=== PATIENT | male | born 1980 | race Hispanic/Latino ===

== ENCOUNTER 2016-08-15 08:20 | Emergency (ER) | payer OTHER ==
[~2016-08-15] VITALS: Ht 182.9 cm; Wt 86.6 kg
--- NOTE | 2016-08-15 09:27 | ED GENERAL ADULT ---
History of Present Illness General Chief Complaint: General Adult Stated Complaint: LEFT RIB PAIN Source: patient Exam Limitations: no limitations Vital Signs & Intake/Output Vital Signs & Intake/Output Vital Signs Date Time Temp Pulse Resp B/P B/P Pulse O2 O2 Flow FiO2 Mean Ox Delivery Rate 08/15 0825 98.4 94 20 155/81 99 Room Air Allergies Coded Allergies: No Known Allergies (08/15/16) Reconcile Medications No Known Home Medications Triage Note: 35 YO MALE TO TRIAGE C/O L SIDED RIB PAIN X 4 DAYS. STATES ABOUT A WEEK AGO HE LAYED DOWN ON A WASHOE BAR ON THE L SIDE. PT STATES ITS HARD TO TAKE A DEEP BREATH D/T THE PAIN. NO RESP DISTRESS NOTED. RA SATS 99% AT THIS TIME. Triage Nurses Notes Reviewed? yes HPI: Patient presents for evaluation of severe sharp left rib pain that began about 5 days ago. Patient states that he becomes worse with deep breath coughing and movement. He denies any specific trauma but states that about one week ago he was digging a hole while he was working he was lying on a crowbar for a while. He states he didn't have much pain initially and so didn't think much of it. Since then however he has had an intermittent pain as described above with no associated soft tissue swelling and ecchymoses or rashes. He has tried lidocaine patches and other "back pain patches" [id number] without improvement. He tried ibuprofen 600 mg 4 a day without improvement. Nothing seems to make his pain feel better. Past History Travel History Traveled to [place] past 21 day No Medical History Any Pertinent Medical History? see below for history Neurological: NONE EENT: NONE Cardiovascular: NONE Respiratory: NONE Gastrointestinal: NONE Hepatic: NONE Renal: NONE Musculoskeletal: NONE Psychiatric: NONE Endocrine: NONE Blood Disorders: NONE Cancer(s): NONE JANITORIAL TECH/Reproductive: NONE Surgical History Surgical History: non-contributory Psychosocial History What is your primary language Chilean Tobacco Use: Never used Family History Hx Contributory? No Review of Systems Review of Systems Constitutional: Reports: no symptoms. EENTM: Reports: no symptoms. Respiratory: Reports: no symptoms. Cardiovascular: Reports: no symptoms. GI: Reports: no symptoms. Genitourinary: Reports: no symptoms. Musculoskeletal: Reports: see HPI. Skin: Reports: no symptoms. Neurological/Psychological: Reports: no symptoms. Hematologic/Endocrine: Reports: no symptoms. Immunologic/Allergic: Reports: no symptoms. All Other Systems: Reviewed and Negative Physical Exam Physical Exam General Appearance: SEE BELOW Comments: Gen.: Well-nourished, well-developed, no acute respiratory distress. Head: Normocephalic, atraumatic. Eyes: Normal inspection bilaterally Ears: Normal inspection bilaterally Nose: Normal inspection Throat/mouth : Moist mucosa Neck: Supple, full range of motion, no goiter Heart: Regular rate and rhythm, no murmurs rubs or gallops Lungs: Clear to auscultation bilaterally with normal air entry Chest: Left anterior inferior rib tenderness without soft tissue swelling or ecchymoses or rashes Back: Normal range of motion Abdomen: Soft, nontender, nondistended, normal bowel sounds Extremities: Normal range of motion grossly, equal radial pulses, no cyanosis clubbing or edema Neurologic: Cranial nerves grossly intact, speech is clear Skin: warm and dry Psychiatric: Calm, cooperative, no apparent delusions or hallucinations Core Measures ACS in differential dx? No CVA/TIA Diagnosis: No Severe Sepsis Present: No Septic Shock Present: No Diagram Chest, Abdomen, Back: 1) AREA OF TENDERNESS Progress Differential Diagnoses I considered the following diagnoses in my evaluation of the patient: Rib fracture, rib contusion, intercostal muscle pull Plan of Care: Orders Procedure Date/time Status XRY-CHEST XRAY, PA AND LATERAL 08/15 924 Active Initial ED EKG: none Departure Departure Disposition: HOME OR SELF CARE Condition: Stable Clinical Impression Primary Impression: Intercostal muscle strain Qualifiers: Encounter type: initial encounter Qualified Code: S29.011A - Strain of muscle and tendon of front wall of thorax, initial encounter Referrals: LATRLEL HALE MD (PCP/Family) Additional Instructions: Rest, no exertional heavy lifting. Diclofenac and Flexeril as prescribed. Follow up with your primary care physician in 5 days if not improving. Return if any concerns or sudden worsening. Please note that there might be incidental findings in your evaluation that are unrelated to the current emergency department visit. Please notify your primary care doctor about this emergency department visit in order to obtain and review all of the testing performed so that these incidental findings can be monitored as needed. If you had an x-ray performed, please understand that some fractures may not be seen on the initial set of x-rays. If your symptoms persist you might need a repeat set of x-rays to check for such a fracture. If you had a laceration evaluated, please understand that foreign bodies such as glass or wood may not be visible to the naked eye or on plain x-rays. If the wound becomes red, swollen, increasingly more painful or if there is any drainage from the wound, please have it reevaluated by a physician for the possibility of a retained foreign body. Thank you for choosing the [facility] for your care. It was a pleasure to serve you today. Mahamed Onofre M.D. [facility] Departure Forms: Customer Survey General Discharge Information Prescriptions: Current Visit Scripts Diclofenac Potassium 1 TAB PO TID PRN PAIN #30 TAB Cyclobenzaprine HCl 1 TAB PO QPM #15 TAB Critical Care Note Critical Care Note Critical Care Time: non-applicable
[2016-08-15] MEDS ORDERED: DICLOFENAC POTA50 M1 PO (10:36)
[2016-08-15] MEDS ORDERED: CYCLOBENZAPRINE10 M1 PO (10:36)
--- NOTE | 2016-08-15 10:36 | RADIOLOGY REPORT ---
EXAMINATION: XR CHEST CLINICAL INFORMATION: Left anterior inferior rib pain COMPARISON: None TECHNIQUE: Frontal and lateral views of the chest FINDINGS: Heart size and pulmonary vascularity is within normal limits. The lungs are normally expanded. There is some biapical pleural-parenchymal thickening which may be related to pleural scarring. There is no focal consolidation or atelectasis. There is no pneumothorax or pleural effusion. The ribs are not fully assessed on this examination but the visualized portions are normal in appearance with no displaced fracture appreciated. Thoracic spine is unremarkable in appearance. IMPRESSION: Normally expanded and grossly clear lungs with no acute findings. Possible mild pleural parenchymal scarring in the apices. No acute fracture is seen in the visualized bony structures. The ribs are incompletely assessed on this exam.
[2016-08-15 10:49] VITALS: BP 142/70
== END 2016-08-15 10:49 ==
LOC: ERH 08:20
DX: S29.011A Strain of muscle and tendon of front wall of thorax, initial encounter (principal)